=== PATIENT | male | born 1970 | race Caucasian/White ===

== ENCOUNTER 2019-07-28 17:32 | Emergency (ER) | payer OTHER ==
[~2019-07-28] VITALS: Ht 188 cm; Wt 104.3 kg
== END 2019-07-28 19:29 | disposition home or self-care (01) ==
LOC: ED 17:32
DX: S00.35XA Superficial foreign body of nose, initial encounter (principal); W45.8XXA Other foreign body or object entering through skin, initial encounter
CPT/HCPCS: 64400; 90471; 90715; 99283-25